=== PATIENT | female | born 1945 | race Caucasian/White ===

== ENCOUNTER 2019-05-05 06:57 | Observation (INO) | payer MEDICARE ==
[~2019-05-05] VITALS: Ht 170.2 cm; Wt 82.7 kg
[2019-05-05] MEDS ORDERED: normal saline 1000ml 1,000 ML IV ONE (07:08)
[2019-05-05 07:52] LABS: BASOPHILS # (AUTO) 0.1 X10'3 (0-0.2); BASOPHILS % (AUTO) 0.7 % (0-1); EOSINOPHILS # (AUTO) 0.1 X10'3 (0-0.9); EOSINOPHILS % (AUTO) 1.3 % (0-6); HEMATOCRIT 42.7 % (35.0-45.0); HEMOGLOBIN 14.3 g/dl (12.0-16.0); LYMPHOCYTES % (AUTO) 10.8 % (21-51); MEAN CORPUSCULAR HEMOGLOBIN 30.4 PG (27.0-31.0); MEAN CORPUSCULAR HGB CONC 33.5 g/dL (33.0-36.5); MEAN CORPUSCULAR VOLUME 90.8 FL (78-98); MEAN PLATELET VOLUME 9.6 FL (7.4-10.4); MONOCYTES # (AUTO) 0.8 X10'3 (0-0.9); MONOCYTES % (AUTO) 8.7 % (2-12); NEUTROPHILS # (AUTO) 7.1 X10'3 (1.8-7.7); NEUTROPHILS % (AUTO) 78.5 % (42-75); PLATELET COUNT 297 X10'3 (140-440); RED BLOOD COUNT 4.71 X10'6 (4.20-5.60); RED CELL DISTRIBUTION WIDTH 14.8 % (11.5-14.5); WHITE BLOOD COUNT 9.1 X10'3 (4.5-11.0)
[2019-05-05 07:56] LABS: PARTIAL THROMBOPLASTIN TIME 37 SECONDS (22-32)
[2019-05-05 07:57] LABS: ALANINE AMINOTRANSFERASE 21 U/L (12-78); ALBUMIN 3.7 G/DL (3.4-5.0); ALKALINE PHOSPHATASE 85 IU/L (46-116); ANION GAP 6 (8-16); ASPARTATE AMINO TRANSFERASE 19 U/L (10-37); BILIRUBIN,TOTAL 0.7 MG/DL (0.1-1.0); BLOOD UREA NITROGEN 28 MG/DL (7-18); BUN/CREATININE RATIO 25.2 (6.6-38.0); CALCIUM 9.3 MG/DL (8.5-10.1); CHLORIDE 105 MMOL/L (99-107); CREATININE 1.11 MG/DL (0.40-0.90); GLUCOSE 93 MG/DL (70-104); POTASSIUM 4.5 MMOL/L (3.5-5.1); SODIUM 139 MMOL/L (135-145); TOTAL CARBON DIOXIDE 28.4 MMOL/L (24-32); TOTAL PROTEIN 7.5 G/DL (6.4-8.2); eGFR 48 ML/MIN
[2019-05-05 08:04] LABS: MAGNESIUM 2.1 MG/DL (1.5-2.4)
[2019-05-05 08:59] LABS: CLARITY,URINE SLIGHTLY CLOUDY (Clear); COLOR,URINE YELLOW (Yellow); GLUCOSE, URINE NEGATIVE (Neg); KETONES,URINE NEGATIVE (Neg); LEUKOCYTE ESTERASE ,URINE NEGATIVE (Neg); NITRITES, URINE NEGATIVE (Neg); OCCULT BLOOD,URINE TRACE-LYSED (Neg); PROTEIN,URINE TRACE mg/dl (Neg); UROBILINOGEN,URINE 0.2 E.U/dL (0.2-1.0)
[2019-05-05 09:06] LABS: UA COLLECTION TYPE CLN CATCH MIDSTREAM
[2019-05-05 09:10] LABS: BACTERIA,URINE FEW /HPF (Neg); RBC,URINE 0-2 /HPF (0-2); SQUAMOUS EPITHELIAL CELL,UR MANY /LPF (FEW); WBC,URINE 0-4 /HPF (0-4)
[2019-05-05 09:11] LABS: HYALINE CASTS 0-3 /LPF (NEGATIVE); MUCUS STRANDS FEW /LPF (Neg)
[2019-05-05] MEDS ORDERED: WARF2.5T9 PO (09:14)
[2019-05-05] MEDS ORDERED: WARF5TAB9 PO (09:14)
[2019-05-05] MEDS ORDERED: MONT10TA26 PO (09:14)
[2019-05-05] MEDS ORDERED: METO-539 PO (09:14)
[2019-05-05] MEDS ORDERED: FLUT1DIS20 INH (09:22)
[2019-05-05] MEDS ORDERED: ALBU18HF2 INH (09:22)
[2019-05-05] MEDS ORDERED: SPIR25TA5 PO (09:22)
[2019-05-05] MEDS ORDERED: IPRA4AER IH (09:22)
[2019-05-05] MEDS ORDERED: ACET-2319 PO (09:22)
[2019-05-05] MEDS ORDERED: FURO40TA4 PO (09:22)
[2019-05-05] MEDS ORDERED: IPRA3AMP31 IH (09:22)
[2019-05-05] MEDS ORDERED: OLME5TAB3 PO (09:22)
[2019-05-05] MEDS ORDERED: ROSU40TA PO (09:22)
[2019-05-05] MEDS ORDERED: CRAN450T4 PO (09:22)
[2019-05-05] MEDS ORDERED: normal saline 1000ML IV soln IVB ONE (12:00)
[2019-05-05] MEDS ORDERED: acetaminophen 325mg tablet PO PRN ×2 (14:00)
[2019-05-05] MEDS ORDERED: morphine 2 MG/ML inj. syringe IV PRN ×2 (14:00)
[2019-05-05] MEDS ORDERED: mag hydrox/Alum hydrox/simeth 30ml oral suspension PO PRN (14:00)
[2019-05-05] MEDS ORDERED: magnesium hydroxide 30ml (MOM) UD suspension PO PRN (14:00)
[2019-05-05] MEDS ORDERED: ondansetron/PF 4mg/2ml inj IV PRN (14:00)
[2019-05-05] MEDS ORDERED: HYDROcodone/acetaminophen 5mg/325mg tablet PO PRN (14:00)
[2019-05-05] MEDS: ipratropium/albuterol 3ml nebule NEB SCH ×2 (14:15→20:00)
[2019-05-05] MEDS ORDERED: albuterol 2.5 MG/3 ML nebule NEB SCH (14:30)
[2019-05-05] MEDS: normal saline 1000ml 1,000 ML IV SCH ×2 (16:18→17:32)
[2019-05-05] MEDS: ipratropium/albuterol 3ml nebule IH SCH ×2 (16:48→20:40)
[2019-05-05] MEDS: metoprolol succinate 25mg (24-HOUR) SR. Tablet PO SCH (17:15)
--- NOTE | 2019-05-05 17:36 | NUR ---
Arrived to Room 4021B via [place] from the ED. Amb to bed with 1 person assist. Orientated to room. Call light given to pt to use. VS taken at this time.
[2019-05-05 17:38] VITALS: BP 135/63
--- NOTE | 2019-05-05 18:20 | NUR ---
Received patient report from GERMÁN Griffin. Assumed patient care.
[2019-05-05 20:00] VITALS: BP_SYST 129; BP_SYST 135; BP_SYST 138; BP_DIAS 43; BP_DIAS 48; BP_DIAS 56
[2019-05-05] MEDS: spironolactone 25 MG tablet PO SCH (20:15)
[2019-05-05] MEDS: budesonide 0.5mg/2ml UD nebule IH SCH (20:40)
[2019-05-05] MEDS ORDERED: montelukast 10mg tablet PO SCH (21:00)
[2019-05-05] MEDS ORDERED: diphenhydrAMINE 25mg capsule PO SCH (21:00)
[2019-05-05] MEDS ORDERED: acetaminophen 325mg tablet PO SCH (21:00)
[2019-05-05 22:00] VITALS: BP 138/72
[2019-05-06] MEDS: normal saline 1000ml 1,000 ML IV SCH (02:49)
[2019-05-06 06:00] VITALS: BP 123/46
--- NOTE | 2019-05-06 06:00 | NUR ---
I have received report from Rosario DUNLAP and had the opportunity to ask questions and assume patient care.
--- NOTE | 2019-05-06 06:19 | NUR ---
Patient report given, questions answered and plan of care reviewed with GERMÁN Lepe.
[2019-05-06 06:22] LABS: ANION GAP 7 (8-16); BLOOD UREA NITROGEN 17 MG/DL (7-18); BUN/CREATININE RATIO 17.5 (6.6-38.0); CALCIUM 8.2 MG/DL (8.5-10.1); CHLORIDE 110 MMOL/L (99-107); CREATININE 0.97 MG/DL (0.40-0.90); GLUCOSE 92 MG/DL (70-104); POTASSIUM 4.3 MMOL/L (3.5-5.1); SODIUM 142 MMOL/L (135-145); TOTAL CARBON DIOXIDE 25.3 MMOL/L (24-32); eGFR 56 ML/MIN
[2019-05-06] MEDS: spironolactone 25 MG tablet PO SCH (07:29)
[2019-05-06] MEDS: metoprolol succinate 25mg (24-HOUR) SR. Tablet PO SCH (07:29)
[2019-05-06] MEDS: ipratropium/albuterol 3ml nebule IH SCH (07:45)
[2019-05-06] MEDS: ipratropium/albuterol 3ml nebule NEB SCH (07:48)
[2019-05-06] MEDS: budesonide 0.5mg/2ml UD nebule IH SCH (07:49)
[2019-05-06 08:00] VITALS: BP_SYST 114; BP_SYST 115; BP_SYST 116; BP_DIAS 50; BP_DIAS 52; BP_DIAS 65
[2019-05-06] MEDS ORDERED: losartan 25mg tablet PO SCH (08:00)
[2019-05-06] MEDS ORDERED: non-formulary drug (Cranberry Extract (Cranberry) 1 TAB) PO SCH (08:00)
[2019-05-06] MEDS ORDERED: ipratropium/albuterol 3ml nebule NEB SCH ×2 (08:00)
[2019-05-06] MEDS ORDERED: atorvastatin 20mg tablet PO SCH (08:00)
[2019-05-06] MEDS ORDERED: warfarin 5mg tablet PO SCH (08:00)
[2019-05-06] MEDS ORDERED: furosemide 40mg tablet PO SCH (08:00)
--- NOTE | 2019-05-06 10:21 | NUR ---
PAGER ID: [phone] MESSAGE: [id number]. Pt. has family here and is asking about being discharge. Thank you. Fam/Laura [id number]
--- NOTE | 2019-05-06 11:46 | NUR ---
PAGER ID: [phone] MESSAGE: [id number]. Pt. walked 300 ft with no dizziness or distress. Thank You. Roberth DUNLAP [id number]
--- NOTE | 2019-05-07 10:43 | NUR ---
Case management DC follow up: spoke w/pt via telephone: reports, "not perfect, but getting better". Went over orthostatic hypotension protocol, pt verbalizes understanding and is compliant. pt has family around to help. awaiting call back from Dr Hilton office to schedule follow up. Pt verbalizes understanding of meds, why prescribed, taking as ordered, holding lasix r/t dizziness per order. pt monitors BP, HR. pt denies cp, emergent general pain, leg pain, abd pain, emergent SOB, resp distress, NV, syncope episodes, VIZCARRA, blurry vision, confusion. remains afebril. understands to stay hydrated. Verbalizes understanding of s/s that would warrant -/ER visit for evaluation. needs met, questions answered at DC, no further questions at this time.
== END 2019-05-06 12:30 | disposition home or self-care (01) ==
LOC: ER 06:58 → ED HOLD 14:03 → ORTHO 4S 17:20
PROVIDERS: ADMIT Internal Medicine; ATTEND Internal Medicine
DX: R55 Syncope and collapse (principal); I49.5 Sick sinus syndrome; I48.91 Unspecified atrial fibrillation; I11.0 Hypertensive heart disease with heart failure; I50.9 Heart failure, unspecified; E78.5 Hyperlipidemia, unspecified; J44.9 Chronic obstructive pulmonary disease, unspecified; F17.210 Nicotine dependence, cigarettes, uncomplicated; Z95.0 Presence of cardiac pacemaker; Z90.49 Acquired absence of other specified parts of digestive tract; Z95.2 Presence of prosthetic heart valve; Z79.01 Long term (current) use of anticoagulants; Z79.899 Other long term (current) drug therapy; Z88.5 Allergy status to narcotic agent; Z88.6 Allergy status to analgesic agent; Z91.048 Other nonmedicinal substance allergy status; Z88.8 Allergy status to other drugs, medicaments and biological substances
CPT/HCPCS: 36415; 70450; 71045; 80048; 80053; 81001; 83735; 83880; 84484; 85025; 85610; 85730; 87081; 93005; 94640; 94760; 96360; 96361; 99285; G0378; J7030; Q0163; J7626

== ENCOUNTER 2019-05-09 02:55 | Observation (INO) | payer MEDICARE, OTHER ==
[~2019-05-09] VITALS: Ht 170.2 cm; Wt 82.0 kg
[2019-05-09] VITALS (8 sets, daily range): BP systolic 114–152; BP diastolic 49–63
[~2019-05-09 02:55] MED LIST: ACET-2319 PO; ALBU18HF2 INH; CRAN450T4 PO; FLUT1DIS20 INH; FURO40TA4 PO; IPRA3AMP31 IH; IPRA4AER IH; METO-539 PO; MONT10TA26 PO; OLME5TAB3 PO; ROSU40TA PO; SPIR25TA5 PO; WARF2.5T9 PO; WARF5TAB9 PO
[2019-05-09] MEDS ORDERED: nitroGLYCERIN 0.2mg/hour patch TD ONE (03:30)
[2019-05-09 03:50] LABS: BASOPHILS # (AUTO) 0.1 X10'3 (0-0.2); BASOPHILS % (AUTO) 0.7 % (0-1); EOSINOPHILS # (AUTO) 0.1 X10'3 (0-0.9); EOSINOPHILS % (AUTO) 1.1 % (0-6); HEMATOCRIT 39.6 % (35.0-45.0); LYMPHOCYTES # (AUTO) 0.8 X10'3 (1.1-4.8); LYMPHOCYTES % (AUTO) 6.7 % (21-51); MEAN CORPUSCULAR HEMOGLOBIN 29.8 PG (27.0-31.0); MEAN CORPUSCULAR HGB CONC 32.8 g/dL (33.0-36.5); MEAN CORPUSCULAR VOLUME 90.6 FL (78-98); MEAN PLATELET VOLUME 9.4 FL (7.4-10.4); MONOCYTES # (AUTO) 1.2 X10'3 (0-0.9); NEUTROPHILS # (AUTO) 9.7 X10'3 (1.8-7.7); NEUTROPHILS % (AUTO) 81.5 % (42-75); PLATELET COUNT 258 X10'3 (140-440); RED BLOOD COUNT 4.37 X10'6 (4.20-5.60); RED CELL DISTRIBUTION WIDTH 14.8 % (11.5-14.5); WHITE BLOOD COUNT 11.9 X10'3 (4.5-11.0)
[2019-05-09 04:13] LABS: ALANINE AMINOTRANSFERASE 24 U/L (12-78); ALBUMIN 3.5 G/DL (3.4-5.0); ALKALINE PHOSPHATASE 91 IU/L (46-116); ANION GAP 5 (8-16); ASPARTATE AMINO TRANSFERASE 17 U/L (10-37); BLOOD UREA NITROGEN 13 MG/DL (7-18); BUN/CREATININE RATIO 13.4 (6.6-38.0); CALCIUM 9.1 MG/DL (8.5-10.1); CHLORIDE 106 MMOL/L (99-107); CREATININE 0.97 MG/DL (0.40-0.90); GLUCOSE 114 MG/DL (70-104); POTASSIUM 3.5 MMOL/L (3.5-5.1); SODIUM 141 MMOL/L (135-145); TOTAL PROTEIN 7.1 G/DL (6.4-8.2); eGFR 56 ML/MIN
[2019-05-09 04:16] LABS: TROPONIN I < 0.04 NG/ML (0.0-0.05)
[2019-05-09] MEDS ORDERED: magnesium Cl slow-release 64mg tablet PO PRN (04:30)
[2019-05-09] MEDS ORDERED: magnesium 4gm in 100ml NS 100 ML IV PRN (04:30)
[2019-05-09] MEDS ORDERED: potassium CL 10mEq/100ml bag 100 ML IV PRN ×2 (04:30)
[2019-05-09] MEDS ORDERED: magnesium hydroxide 30ml (MOM) UD suspension PO PRN (04:30)
[2019-05-09] MEDS ORDERED: potassium Cl 20 mEq SR tablet PO PRN ×2 (04:30)
[2019-05-09] MEDS ORDERED: acetaminophen 325mg tablet PO PRN ×2 (04:30)
[2019-05-09] MEDS ORDERED: magnesium 2GM in 50ml NS 50 ML IV PRN (04:30)
[2019-05-09] MEDS ORDERED: nitroGLYCERIN 0.4mg SUBLingual tab SL PRN ×2 (04:30→04:35)
[2019-05-09] MEDS ORDERED: mag hydrox/Alum hydrox/simeth 30ml oral suspension PO PRN (04:30)
[2019-05-09 04:34] LABS: PARTIAL THROMBOPLASTIN TIME 43 SECONDS (22-32)
[2019-05-09] MEDS ORDERED: regadenoson 0.4mg/5ml syringe IV ONE (04:35)
[2019-05-09] MEDS ORDERED: aminophylline 250mg/10ml inj. IV PRN (04:35)
[2019-05-09] MEDS ORDERED: metoprolol tartrate 1mg/ml inj IV PRN (04:35)
--- NOTE | 2019-05-09 05:51 | NUR ---
hospitalist at bedside assessing patient
--- NOTE | 2019-05-09 06:29 | NUR ---
SBAR TO MARCOS DUNLAP NO QUESTIONS OR CONCERNS AFTER ASSUMING CARE
--- NOTE | 2019-05-09 07:57 | NUR ---
Patient in room ED 4. I have received report from Tan DUNLAP and had the opportunity to ask questions and assume patient care.
[2019-05-09] MEDS ORDERED: enoxaparin 40mg/0.4ml syringe SQ SCH (08:00)
[2019-05-09] MEDS ORDERED: K and/or MAG REPLACEMENT MC SCH (08:00)
[2019-05-09] MEDS ORDERED: furosemide 40mg tablet PO SCH (09:05)
[2019-05-09] MEDS ORDERED: metoprolol succinate 25mg (24-HOUR) SR. Tablet PO SCH (09:05)
[2019-05-09] MEDS ORDERED: losartan 25mg tablet PO SCH (09:15)
[2019-05-09] MEDS ORDERED: atorvastatin 20mg tablet PO SCH (09:16)
--- NOTE | 2019-05-09 10:22 | NUR ---
RESPIRATORY PAGED: [phone][facility]
[2019-05-09] MEDS: ipratropium/albuterol 3ml nebule IH PRN ×2 (10:30→14:21)
[2019-05-09] MEDS ORDERED: regadenoson 0.4mg/5ml syringe IV PRN (11:05)
--- NOTE | 2019-05-09 13:07 | NUR ---
JONAH PAGED: PAGER ID: [phone] MESSAGE: [phone]: EMILY MUNGUIA NEGATIVE, OK TO FEED? ?D/C NURSE AFSANEH [id number]
--- NOTE | 2019-05-09 15:03 | NUR ---
Patient in room MED 317. I have received report from GERMÁN Cormier and had the opportunity to ask questions and assume patient care. Patient awake in bed.
[2019-05-09] MEDS ORDERED: LEVO500T89 PO (15:06)
[2019-05-09] MEDS ORDERED: PRED10TA23 PO (15:06)
--- NOTE | 2019-05-09 15:10 | NUR ---
O2 Sat at rest on room air: 93% If below 89%: Recovery O2 Sat at rest on ___LPM:___%:___% via (mask/nasal cannula, etc..) No further documentation is necessary. If O2 Sat did not drop below 89% on room air,ambulate patient on room air. O2 Sat while ambulating on room air: 88% Recovery O2 Sat while ambulating on 2 LPM: 95 % No further documentation is necessary. If patient does not drop below 89% while ambulating, he/she does not qualify for home O2.
--- NOTE | 2019-05-09 15:12 | NUR ---
CASE MANAGEMENT PAGED - [phone]: EMILY - NEEDS HOME O2, QUALIFYING NOTE DONE.
--- NOTE | 2019-05-09 16:45 | NUR ---
Patient stable for discharge per MD orders. All discharge instructions reviewed and questions answered appropriately. New prescriptions were sent electronically to the pharmacy. Belongings collected and sent with the patient. PIV discontinued and cannula intact. Patient wheeled down to lobby via wheelchair and left by private vehicle.
[2019-05-09] MEDS ORDERED: montelukast 10mg tablet PO SCH (21:00)
[2019-05-09] MEDS ORDERED: warfarin 5mg tablet PO ONE (21:00)
--- NOTE | 2019-05-12 15:06 | NUR ---
case management DC follow up: spoke w/pt via telephone. reports, "doing fine", "much better". Denies cp, emergent general pain, leg pain, abd pain, NV, VIZCARRA, dizziness, SOB, resp distress. remains afebrile. Understands med, why prescribed, no ase noted r/t new meds, polypharmacy. verbalizes understanding of s/s that would warrant 9-11/ER visit for evaluations. acknowledges need for follow up appts. Will call Dr Hilton in the AM/05/13/2019, PCP/05/16/2019. needs met, questions answered, no further questions at this time.
== END 2019-05-09 16:45 | disposition home or self-care (01) ==
LOC: ER 02:55 → ED HOLD 04:26 → MED 3N 08:35
PROVIDERS: ADMIT Hospitalist; ATTEND Family Medicine
DX: R07.89 Other chest pain (principal); R55 Syncope and collapse; J44.9 Chronic obstructive pulmonary disease, unspecified; I48.91 Unspecified atrial fibrillation; I11.0 Hypertensive heart disease with heart failure; I50.9 Heart failure, unspecified; Z95.0 Presence of cardiac pacemaker; Z95.2 Presence of prosthetic heart valve; Z79.01 Long term (current) use of anticoagulants; Z79.899 Other long term (current) drug therapy; Z88.6 Allergy status to analgesic agent; Z88.5 Allergy status to narcotic agent; Z88.8 Allergy status to other drugs, medicaments and biological substances; Z91.048 Other nonmedicinal substance allergy status
CPT/HCPCS: 36415; 71045; 78452; 80053; 83880; 84484; 85025; 85610; 85730; 87081; 93005; 93017; 93306; 94640; 94760; 99285; A9500; G0378; J2785

== ENCOUNTER 2019-06-08 15:06 | Emergency (ER) | payer MEDICARE, OTHER ==
[~2019-06-08] VITALS: Ht 170.2 cm; Wt 80.5 kg
[~2019-06-08 15:06] MED LIST changes: -FURO40TA4 PO; +LEVO500T89 PO; +PRED10TA23 PO; -SPIR25TA5 PO
[2019-06-08 16:14] LABS: BASOPHILS % (AUTO) 0.6 % (0-1); EOSINOPHILS # (AUTO) 0.2 X10'3 (0-0.9); EOSINOPHILS % (AUTO) 3.3 % (0-6); HEMOGLOBIN 13.1 g/dl (12.0-16.0); LYMPHOCYTES # (AUTO) 1.2 X10'3 (1.1-4.8); LYMPHOCYTES % (AUTO) 17.3 % (21-51); MEAN CORPUSCULAR HGB CONC 33.6 g/dL (33.0-36.5); MEAN CORPUSCULAR VOLUME 86.4 FL (78-98); MEAN PLATELET VOLUME 9.1 FL (7.4-10.4); MONOCYTES # (AUTO) 0.8 X10'3 (0-0.9); MONOCYTES % (AUTO) 11.9 % (2-12); NEUTROPHILS # (AUTO) 4.4 X10'3 (1.8-7.7); NEUTROPHILS % (AUTO) 66.9 % (42-75); PLATELET COUNT 376 X10'3 (140-440); RED BLOOD COUNT 4.52 X10'6 (4.20-5.60); RED CELL DISTRIBUTION WIDTH 16.3 % (11.5-14.5); WHITE BLOOD COUNT 6.6 X10'3 (4.5-11.0)
[2019-06-08] MEDS ORDERED: albuterol 2.5 MG/3 ML nebule NEB ONE (16:15)
[2019-06-08] MEDS ORDERED: ipratropium/albuterol 3ml nebule NEB ONE (16:15)
[2019-06-08 16:39] LABS: ALANINE AMINOTRANSFERASE 17 U/L (12-78); ALBUMIN 3.3 G/DL (3.4-5.0); ALBUMIN/GLOBULIN RATIO 0.8 (1.1-1.5); ALKALINE PHOSPHATASE 85 IU/L (46-116); ANION GAP 4 (8-16); ASPARTATE AMINO TRANSFERASE 20 U/L (10-37); BILIRUBIN,TOTAL 0.5 MG/DL (0.1-1.0); BLOOD UREA NITROGEN 17 MG/DL (7-18); BUN/CREATININE RATIO 15.9 (6.6-38.0); CALCIUM 9.2 MG/DL (8.5-10.1); CHLORIDE 104 MMOL/L (99-107); CREATININE 1.07 MG/DL (0.40-0.90); GLUCOSE 101 MG/DL (70-104); POTASSIUM 3.4 MMOL/L (3.5-5.1); SODIUM 141 MMOL/L (135-145); TOTAL CARBON DIOXIDE 33.5 MMOL/L (24-32); TOTAL PROTEIN 7.3 G/DL (6.4-8.2); eGFR 50 ML/MIN
[2019-06-08] MEDS ORDERED: AZIT-63 PO (17:58)
[2019-06-08] MEDS ORDERED: PRED20TA PO (17:58)
--- NOTE | 2019-06-08 18:05 | NUR ---
PT REPORTS FEELING SO MUCH BETTER AFTER HER BREATHING TX.
[2019-06-08 18:06] VITALS: BP 155/66
[2019-06-08] MEDS ORDERED: POTA20TA19 PO (18:17)
== END 2019-06-08 18:24 | disposition home or self-care (01) ==
LOC: ER 15:06
DX: J44.9 Chronic obstructive pulmonary disease, unspecified (principal); I48.91 Unspecified atrial fibrillation; I11.0 Hypertensive heart disease with heart failure; I50.9 Heart failure, unspecified; Z95.0 Presence of cardiac pacemaker; Z98.890 Other specified postprocedural states; Z88.5 Allergy status to narcotic agent; Z88.8 Allergy status to other drugs, medicaments and biological substances; Z79.2 Long term (current) use of antibiotics; Z79.01 Long term (current) use of anticoagulants; Z79.899 Other long term (current) drug therapy
CPT/HCPCS: 36415; 71046; 80053; 83605; 85025; 87040; 93005; 94640; 94760; 99285

== ENCOUNTER 2019-08-20 16:42 | Emergency (ER) | payer MEDICARE ==
[~2019-08-20] VITALS: Ht 170.2 cm; Wt 76.8 kg
[~2019-08-20 16:42] MED LIST changes: -LEVO500T89 PO; -PRED10TA23 PO
[2019-08-20 18:03] LABS: BASOPHILS % (AUTO) 0.5 % (0-1); EOSINOPHILS # (AUTO) 0.2 X10'3 (0-0.9); EOSINOPHILS % (AUTO) 2.6 % (0-6); HEMATOCRIT 34.1 % (35.0-45.0); HEMOGLOBIN 10.8 g/dl (12.0-16.0); LYMPHOCYTES # (AUTO) 0.8 X10'3 (1.1-4.8); LYMPHOCYTES % (AUTO) 10.1 % (21-51); MEAN CORPUSCULAR HEMOGLOBIN 25.1 PG (27.0-31.0); MEAN CORPUSCULAR HGB CONC 31.7 g/dL (33.0-36.5); MEAN CORPUSCULAR VOLUME 79.1 FL (78-98); MONOCYTES # (AUTO) 0.7 X10'3 (0-0.9); MONOCYTES % (AUTO) 9.3 % (2-12); NEUTROPHILS # (AUTO) 6.2 X10'3 (1.8-7.7); NEUTROPHILS % (AUTO) 77.5 % (42-75); PLATELET COUNT 360 X10'3 (140-440); RED BLOOD COUNT 4.31 X10'6 (4.20-5.60); RED CELL DISTRIBUTION WIDTH 18.5 % (11.5-14.5); WHITE BLOOD COUNT 7.9 X10'3 (4.5-11.0)
[2019-08-20 18:16] LABS: PARTIAL THROMBOPLASTIN TIME 50 SECONDS (22-32)
[2019-08-20 18:18] LABS: ALANINE AMINOTRANSFERASE 19 U/L (12-78); ALBUMIN 3.3 G/DL (3.4-5.0); ALBUMIN/GLOBULIN RATIO 0.9 (1.1-1.5); ALKALINE PHOSPHATASE 88 IU/L (46-116); ANION GAP 8 (8-16); ASPARTATE AMINO TRANSFERASE 24 U/L (10-37); BILIRUBIN,TOTAL 0.6 MG/DL (0.1-1.0); BLOOD UREA NITROGEN 12 MG/DL (7-18); BUN/CREATININE RATIO 13.5 (6.6-38.0); CALCIUM 8.7 MG/DL (8.5-10.1); CHLORIDE 102 MMOL/L (99-107); CREATININE 0.89 MG/DL (0.40-0.90); GLUCOSE 107 MG/DL (70-104); POTASSIUM 3.3 MMOL/L (3.5-5.1); SODIUM 141 MMOL/L (135-145); TOTAL CARBON DIOXIDE 30.8 MMOL/L (24-32); TOTAL PROTEIN 7.1 G/DL (6.4-8.2); eGFR 62 ML/MIN
[2019-08-20 19:24] LABS: PLATELET ESTIMATE NORMAL
[2019-08-20 19:25] LABS: ANISOCYTOSIS 2+
[2019-08-20] MEDS ORDERED: albuterol 2.5 MG/3 ML nebule NEB ONE (21:00)
[2019-08-20] MEDS ORDERED: ipratropium/albuterol 3ml nebule NEB ONE (21:00)
[2019-08-20] MEDS ORDERED: AZIT250T PO (21:10)
[2019-08-20] MEDS ORDERED: PRED20TA PO (21:10)
[2019-08-20] MEDS ORDERED: azithromycin 250mg tablet PO ONE (21:10)
[2019-08-20 21:34] VITALS: BP 168/77
[2019-08-20] MEDS ORDERED: IPRA3AMP31 IH (21:55)
== END 2019-08-20 22:27 | disposition home or self-care (01) ==
LOC: ER 16:43
DX: J44.1 Chronic obstructive pulmonary disease with (acute) exacerbation (principal); D64.9 Anemia, unspecified; I48.91 Unspecified atrial fibrillation; I50.9 Heart failure, unspecified; I11.0 Hypertensive heart disease with heart failure; Z95.0 Presence of cardiac pacemaker; Z98.890 Other specified postprocedural states; Z88.5 Allergy status to narcotic agent; Z88.6 Allergy status to analgesic agent; Z88.8 Allergy status to other drugs, medicaments and biological substances; Z79.2 Long term (current) use of antibiotics; Z79.01 Long term (current) use of anticoagulants; Z79.899 Other long term (current) drug therapy
CPT/HCPCS: 36415; 71045; 80053; 84484; 85025; 85610; 85730; 93005; 94640; 94760; 99285